=== PATIENT | male | born 1985 | race Caucasian/White ===

== ENCOUNTER 2016-08-23 14:16 | Emergency (ER) | payer MEDICAID ==
[2016-08-23 14:31] VITALS: BP 177/119
--- NOTE | 2016-08-23 14:37 | ED Physician Documentation ---
PD HPI LOWER EXT INJURY - Stated complaint Stated Complaint: L FT PX - Chief complaint Chief Complaint: Ext Problem - History obtained from History obtained from: Patient - History of Present Illness PD HPI LOW EXT INJURY LOCATION: Left (Inversion injury of his foot 2 weeks ago with persistent pain on the lateral side of the left foot, no ankle or other injuries. He had x-rays done while in group home, but the results are not known.) Review of Systems Constitutional: reports: Reviewed and negative Throat: reports: Reviewed and negative Cardiac: reports: Reviewed and negative PD PAST MEDICAL HISTORY - Past Medical History Past Medical History: Yes Respiratory: Asthma - Past Surgical History Past Surgical History: No - Allergies Allergies/Adverse Reactions: Allergies Allergy/AdvReac Type Severity Reaction Status Date / Time No Known Drug Allergies Allergy Verified 08/23/16 14:30 - Social History Does the pt smoke?: No Smoking Status: Never smoker Does the pt drink ETOH?: No Does the pt have substance abuse?: No - Immunizations Immunizations are current?: Yes PD ED PE NORMAL - Vitals Vital signs reviewed: Yes - General General: Alert and oriented X 3, No acute distress - Extremities Extremities: Other (Some bruising to the lateral distal foot and tender just proximal to the fourth metatarsal. No ankle or leg tenderness.) - Neuro Neuro: Alert and oriented X 3, Normal speech - Psych Psych: Normal mood, Normal affect Results - Vitals Vitals: Vital Signs - 24 hr 08/23/16 14:26 Temperature 36.7 C Heart Rate 80 Respiratory 12 Rate Blood Pressure 177/119 H O2 Saturation 100 Oxygen O2 Source Room air - Rads (name of study) 3 views left foot Radiology: EMP read contemporaneously (normal) Departure - Departure Disposition: 01 Home, Self Care Clinical Impression: Sprain of left foot Qualifiers: Encounter type: initial encounter Qualified Code(s): S93.602A - Unspecified sprain of left foot, initial encounter Condition: Good Record reviewed to determine appropriate education?: Yes Instructions: ED Sprain Foot Comments: Ibuprofen and supportive shoes as needed for pain. Followup with your DrBianca in one week if not improving. Your blood pressure was elevated today on check in to the emergency department. This does not mean that you have hypertension, it is a common phenomenon to check into the emergency department and have elevated blood pressure. I recommend that you see your primary care physician within the week to have it rechecked when you're feeling better.
--- NOTE | 2016-08-23 15:27 | XRAY Preliminary Report ---
Exam: XR Foot 3 View LT IMPRESSION: Normal foot radiography. [facility] SITE ID: [id number]
--- NOTE | 2016-08-23 15:30 | XRAY Report ---
EXAM: Left Foot Radiography EXAM DATE: 08/23/2016 02:40 PM. CLINICAL HISTORY: Foot injury. COMPARISON: None. TECHNIQUE: 3 views. FINDINGS: Bones: Normal. No fractures or bone lesions. Joints: Normal. No subluxations. Soft Tissues: Normal. No soft tissue swelling. IMPRESSION: Normal foot radiography. [facility] Referring Provider Line: [phone] SITE ID: [id number]
== END 2016-08-23 15:37 | disposition home or self-care (01) ==
LOC: ED 14:16
DX: S93.602A Unspecified sprain of left foot, initial encounter (principal); X50.0XXA Overexertion from strenuous movement or load, initial encounter; J45.909 Unspecified asthma, uncomplicated
CPT/HCPCS: 99282; 99283